=== PATIENT | male | born 1935 | race Caucasian/White ===

== ENCOUNTER 2018-07-21 07:31 | Day surgery (SDC) | payer MEDICARE, OTHER ==
[2018-07-21] MEDS ORDERED: Xylocaine 1% Vial 30 ML PF IJ ONE ×2 (07:32)
[2018-07-21] MEDS ORDERED: DIPRIVAN 200 MG/20 ML IV ONE (07:32)
[2018-07-21] MEDS ORDERED: Sodium Chloride 0.9(Preservative Free) 10 ML IJ ONE (07:32)
[2018-07-21] MEDS ORDERED: Ketamine HCl 50 MG/ML IJ ONE (07:32)
[2018-07-21] MEDS ORDERED: Depo-Medrol 40 MG/ML IM ONE (07:32)
--- NOTE | 2018-07-21 12:07 | XRAY ---
33 seconds of fluoroscopy was used in surgery for left L4-L5 and L5-S1 transforaminal VANESSA.
--- NOTE | 2018-07-21 12:17 | XRAY ---
Indication: Left L4-S1 transforaminal VANESSA. Intraoperative fluoroscopy was provided for 33 seconds. 2 digital spot images submitted for interpretation demonstrates posterior needle tips projecting over the expected course of the left L4 and L5 nerve roots. Small amount of contrast injected for needle tip placement. Correlate with intraoperative findings/report. Incidental spinal hardware posterior to L3-L5.
[2018-07-21] MEDS ORDERED: Lactated Ringers 1,000 ML IV ONE (14:52)
== END 2018-07-21 10:57 | disposition home or self-care (01) ==
LOC: SDC-PAIN 07:31
PROVIDERS: ATTEND Psychiatry & Neurology Pain Medicine
DX: M54.16 Radiculopathy, lumbar region (principal); E11.9 Type 2 diabetes mellitus without complications; I10 Essential (primary) hypertension; N40.0 Benign prostatic hyperplasia without lower urinary tract symptoms; N18.2 Chronic kidney disease, stage 2 (mild); M17.0 Bilateral primary osteoarthritis of knee; Z79.899 Other long term (current) drug therapy
CPT/HCPCS: 64483; 64484; 72020; 77003; 82962; 99100; J1030; J2001; J2704; Q9966

== ENCOUNTER 2018-08-11 09:20 | Day surgery (SDC) | payer MEDICARE, OTHER ==
[2018-08-11] MEDS ORDERED: Xylocaine 1% Vial 30 ML PF IJ ONE (09:21)
[2018-08-11] MEDS ORDERED: Sodium Chloride 0.9(Preservative Free) 10 ML IJ ONE (09:21)
[2018-08-11] MEDS ORDERED: Depo-Medrol 40 MG/ML IM ONE (09:21)
--- NOTE | 2018-08-11 16:27 | XRAY ---
44 seconds fluoroscopy time in surgery for left L4-S1 VANESSA.
--- NOTE | 2018-08-12 04:45 | XRAY ---
Indication: Left L4-S1 VANESSA. Intraoperative fluoroscopy was provided for 44 seconds. 4 digital spot images are submitted for interpretation. Posterior needle tips are projected over the anticipated course of the left L4 and L5 nerve roots. A small amount of contrast has been injected for needle tip placement. Correlate with intraoperative findings/report. Orthopedic hardware overlies L4-L5. Correlate with prior surgical history.
== END 2018-08-11 11:10 | disposition home or self-care (01) ==
LOC: SDC-PAIN 09:20
PROVIDERS: ATTEND Psychiatry & Neurology Pain Medicine
DX: M54.16 Radiculopathy, lumbar region (principal); E11.9 Type 2 diabetes mellitus without complications; I10 Essential (primary) hypertension; N40.0 Benign prostatic hyperplasia without lower urinary tract symptoms; N18.2 Chronic kidney disease, stage 2 (mild)
CPT/HCPCS: 64483; 64484; 72020; 77003; 82962; J1030; J2001; Q9966

== ENCOUNTER 2018-08-25 10:59 | Observation (INO) | payer MEDICARE, OTHER ==
--- NOTE | 2018-08-25 11:28 | ERPHSYRPT ---
- History of Present Illness Source: patient Exam Limitations: no limitations Patient Subjective Stated Complaint: pain to back, states he is unable to use his left leg Triage Nursing Assessment: Patient arrive by car to ER door, patient assisted to bed from car by 2 ER nurses. Mark states he is unable to move his left leg and is having back pain Timing/Duration: other (pain for one month left proximal thigh) Severity: moderate Modifying Factors: Improves With: other (Standing and movement left thigh) Associated Symptoms: No nausea, No vomiting, No abdominal pain, No shortness of breath, No heartburn, No diaphoresis, No cough, No chills, No chest pain, No fever, No headaches, No loss of appetite, No malaise, No rash, No syncope, No seizure, No weakness Hx Tetanus, Diphtheria Vaccination/Date Given: No Hx Influenza Vaccination/Date Given: No Hx Pneumococcal Vaccination/Date Given: No Immunizations Up to Date: Yes <TANYA PINEDA - Last Filed: 08/25/18 11:23> <MUNIR MARTIN - Last Filed: 08/25/18 17:58> - History of Present Illness Time Seen by Provider: 08/25/18 11:23 Physician History: 82-year-old white male arrives with complaint of pain in his left leg (thighs symptoms going on for a month he states he's been seeing a pain programmer numerical control in his [place] he's been having increasing pain in the left anterior leg he apparently had a CT today. He is complaining of pain in the leg worse with walking he denies any chest pain any shortness of breath any other complaints. Patient does state that he was seen at [facility] in the past secondary to some blood in his urine. Patient currently only complaint is pain in his left proximal thigh. Patient had a CT of his left thigh this morning at around midnight which is remarkable for a proximal left femur lytic lesion 3.8 x 3.2x7.6 cm he states that he has pain with any walking he can't stand the pain anymore when he goes to walk. Past medical history includes diabetes, high blood pressure apparently has had some blood in his urine in the past he states he's had some kidney problems Past surgical history includes appendectomy cholecystectomy and bilateral knee replacement. Social history patient denies tobacco alcohol or illicit drug use (TANYA PINEDA) Allergies/Adverse Reactions: nisoldipine [From [facility]ular] Allergy (Verified 08/25/18 11:21) Penicillins Allergy (Verified 08/25/18 11:21) Home Medications: No Reportable Medications [No Reported Medications] 08/25/18 [History] - Review of Systems Constitutional: No Fever, No Chills Eyes: No Symptoms Ears, Nose, & Throat: No Symptoms Respiratory: No Cough, No Dyspnea Cardiac: No Chest Pain, No Edema, No Syncope Abdominal/Gastrointestinal: No Abdominal Pain, No Nausea, No Vomiting, No Diarrhea Genitourinary Symptoms: No Dysuria Musculoskeletal: Other (left thigh pain) Skin: No Rash Neurological: No Dizziness, No Focal Weakness, No Sensory Changes Psychological: No Symptoms Endocrine: No Symptoms All Other Systems: Reviewed and Negative <TANYA PINEDA - Last Filed: 08/25/18 11:23> - Past Medical History Pertinent Past Medical History: No Neurological History: No Pertinent History ENT History: No Pertinent History Cardiac History: No Pertinent History Respiratory History: Other Endocrine Medical History: No Pertinent History Musculoskeletal History: Arthritis, Other GI Medical History: No Pertinent History History: Other Psycho-Social History: No Pertinent History, Anxiety Male Reproductive Disorders: No Pertinent History - Past Surgical History Past Surgical History: Yes Neuro Surgical History: No Pertinent History Cardiac: No Pertinent History Respiratory: No Pertinent History Gastrointestinal: No Pertinent History Genitourinary: No Pertinent History, Other Musculoskeletal: Joint Replacement Male Surgical History: No Pertinent History Other Surgical History: Two knee replacement 3 and 5 years ago - Social History Smoking Status: Never smoker Exposure to second hand smoke: No Drug Use: none Patient Lives Alone: No <TANYA PINEDA - Last Filed: 08/25/18 11:23> - Physical Exam General Appearance: mild distress, alert Eye Exam: PERRL/EOMI, eyes nml inspection Ears, Nose, Throat Exam: normal ENT inspection, TMs normal, pharynx normal, moist mucous membranes Neck Exam: normal inspection, non-tender, supple, full range of motion Respiratory Exam: normal breath sounds, lungs clear, No respiratory distress Cardiovascular Exam: regular rate/rhythm, normal heart sounds, normal peripheral pulses, capillary refill <2 sec Gastrointestinal/Abdomen Exam: soft, normal bowel sounds, No tenderness, No mass Back Exam: normal inspection, normal range of motion, No CVA tenderness, No vertebral tenderness Extremity Exam: other (left thigh with approximately 17 by Lamine by 6 cm soft tissue prominence anteriorly tender distal to this) Neurologic Exam: alert, oriented x 3, cooperative, 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 nml as tested, normal mood/affect, nml cerebellar function, nml station & gait, sensation nml, No motor deficits Skin Exam: normal color, warm, dry, No rash SpO2 Interpretation: normal (99%) SpO2: 99 <TANYA PINEDA - Last Filed: 08/25/18 11:23> - Nursing Vital Signs Nursing Vital Signs: Initial Vital Signs Temperature 98.2 F 08/25/18 11:01 Pulse Rate 41 L 08/25/18 11:01 Respiratory Rate 25 H 08/25/18 11:01 Blood Pressure 176/96 08/25/18 11:01 O2 Sat by Pulse Oximetry 99 08/25/18 11:01 Pain Scale Pain Intensity [Left Back] 8 Pain Intensity 10 - Course Nursing assessment & vital signs reviewed: Yes <TANYA PINEDA - Last Filed: 08/25/18 11:23> Ordered Tests: Active Orders 24 hr Category Date Time Status CBC W DIFF Stat Lab 08/25/18 12:37 Completed CMP Stat Lab 08/25/18 12:37 Completed Manual Differential NC Stat Lab 08/25/18 12:37 Completed Transfer Order Routine Transfer 08/25/18 Ordered Medication Summary Generic Name Dose Route Start Last Admin Trade Name Andree PRN Reason Stop Dose Admin Morphine Sulfate 2 mg 08/25/18 13:41 08/25/18 13:52 Morphine Sulfate 2 Mg Inj IV 08/25/18 13:42 2 mg STAT ONE Administration Discontinued Medications Generic Name Dose Route Start Last Admin Trade Name Andree PRN Reason Stop Dose Admin Hydromorphone HCl 0.5 mg 08/25/18 16:32 08/25/18 16:41 Hydromorphone 1 Mg/Ml Ampule IV 08/25/18 16:33 0.5 mg STAT ONE Administration Hydromorphone HCl Confirm 08/25/18 16:34 Hydromorphone 1 Mg/Ml Ampule Administered 08/25/18 16:35 Dose 1 mg .ROUTE .STK-MED ONE Lorazepam 1 mg 08/25/18 16:45 08/25/18 16:54 Ativan 2 Mg/1 Ml Vial IV 08/25/18 16:46 1 mg STAT ONE Administration Lorazepam Confirm 08/25/18 16:51 Ativan 2 Mg/1 Ml Vial Administered 08/25/18 16:52 Dose 2 mg .ROUTE .STK-MED ONE Ondansetron HCl 4 mg 08/25/18 16:33 08/25/18 16:41 Zofran 4 Mg/2 Ml Vial IV 08/25/18 16:34 4 mg STAT ONE Administration Ondansetron HCl Confirm 08/25/18 16:33 Zofran 4 Mg/2 Ml Vial Administered 08/25/18 16:34 Dose 4 mg .ROUTE .STK-MED ONE Lab/Rad Data: Laboratory Result Diagrams 08/25/18 12:37 08/25/18 12:37 Laboratory Results 08/25/18 08/25/18 Range/Units 12:37 12:37 WBC 11.5 H (4.0-10.5) K/mm3 RBC 5.09 (4.1-5.6) M/mm3 Hgb 13.6 (12.5-18.0) gm/dl Hct 40.8 L (42-50) % MCV 80.2 (78-100) fl MCH 26.7 (26-32) pg MCHC 33.3 (32-36) g/dl RDW 15.8 H (11.5-14.0) % Plt Count 238 (150-450) K/mm3 MPV 9.6 H (6-9.5) fl Segmented Neutrophils 82 H (36.-66.) % Lymphocytes (Manual) 17 L (24-44) % Monocytes (Manual) 1 (0.0-12.0) % Toxic Granulation 1+ Platelet Estimate NORMAL (NORMAL) RBC Morphology NORMAL Sodium 137 (137-145) mmol/L Potassium 4.2 (3.5-5.1) mmol/L Chloride 103 (98-107) mmol/L Carbon Dioxide 20 L (22-30) mmol/L Anion Gap 17.9 H (5-15) MEQ/L BUN 31 H (9-20) mg/dL Creatinine 1.27 H (0.66-1.25) mg/dL Estimated GFR 57.4 ML/MIN Glucose 128 H (74-106) mg/dL Calcium 9.9 (8.4-10.2) mg/dL Total Bilirubin 0.90 (0.2-1.3) mg/dL AST 50 (17-59) U/L ALT 29 (0-50) U/L Alkaline Phosphatase 69 (38-126) U/L Serum Total Protein 7.3 (6.3-8.2) g/dL Albumin 3.9 (3.5-5.0) g/dL - Progress Progress: improved <TANYA PINEDA - Last Filed: 08/25/18 11:23> - Progress Discussed with : Tan Counseled pt/family regarding: lab results, diagnosis, rad results <MUNIR MARTIN - Last Filed: 08/25/18 17:58> - Progress Progress Note: 08/25/18 11:29 This is an 82-year-old white male with history of high blood pressure, CVA, kidney problems who has had blood in his urine in the past he is complaining of pain in his left anterior thigh symptoms for one month. Patient on exam has a proximal his 17 x 13x9 cm soft tissue prominence on the anterior thigh is tender with palpation distally the to this. Patient with a CT of the left lower extremity this morning impression proximal left femur leave it lesion approximately 3.8 x 3.2x7.6 cm with bony cortical thinning and cortical break through anteriorly worrisome for primary versus metastatic malignancy. No obvious soft tissue component There is also an incidental and large prostate gland, osteopenia, degenerative changes of both hips and scattered arteriosclerotic disease. I've contacted the orthopedist that [facility] he recommended the patient be sent to a [facility] facility with availability of a orthopedic oncologist. (TANYA PINEDA) 08/25/18 17:[address] oh, [place], orthopedic oncologist, evaluated pts ct scan left lower ext on the cloud. he accepts pt for transfer but there are no beds available for approx 24 hours. ok to admit at [facility], pain control and no weight bearing. they will contact medical floor when bed available at [id number] womack. i reviewed pt hx, condition, lab and ct scan results with her. she accepts observation placement (MUNIR MARTIN) <TANYA PINEDA - Last Filed: 08/25/18 11:23> - Departure Departure Disposition: Observation Critical Care Time: No <MUNIR MARTIN - Last Filed: 08/25/18 17:58> - Departure Clinical Impression: Lytic bone lesion of femur, Impending pathologic fracture Condition: Stable Referrals: MORENA LUGO MD [Primary Care Provider] -
[2018-08-25 12:40] LABS: Hematocrit 40.8 % (42-50); Hemoglobin 13.6 gm/dl (12.5-18.0); Mean Cell Volume 80.2 fl (78-100); Mean Corpuscular Hemoglobin 26.7 pg (26-32); Mean Corpuscular Hgb Concent. 33.3 g/dl (32-36); Red Blood Count 5.09 M/mm3 (4.1-5.6); Red Cell Distribution Width 15.8 % (11.5-14.0); White Blood Count 11.5 K/mm3 (4.0-10.5)
[2018-08-25 12:41] LABS: Mean Platelet Volume 9.6 fl (6-9.5); Platelet Count 238 K/mm3 (150-450)
[2018-08-25 12:53] LABS: ALBUMIN 3.9 g/dL (3.5-5.0); ANION GAP 17.9 MEQ/L (5-15); BILIRUBIN,TOTAL 0.9 mg/dL (0.2-1.3); Calcium 9.9 mg/dL (8.4-10.2); Creatinine 1 1.27 mg/dL (0.66-1.25); Potassium 4.2 mmol/L (3.5-5.1); Total Protein 7.3 g/dL (6.3-8.2)
[2018-08-25 13:30] LABS: Lymphocytes 17 % (24-44); Monocyte 1 % (0.0-12.0); Neutrophils 82 % (36.-66.); Platelet Estimate NORMAL (NORMAL); Total Cells Counted 100; Toxic Granulation 1+
[2018-08-25] MEDS ORDERED: MORPHINE SULFATE 2 MG INJ IV ONE (13:41)
[2018-08-25] MEDS ORDERED: MORPHINE SULFATE 2 MG INJ ONE (13:51)
[2018-08-25] MEDS ORDERED: Hydromorphone 1 mg/ml Ampule IV ONE (16:32)
[2018-08-25] MEDS ORDERED: Zofran 4 MG/2 ML VIAL ONE (16:33)
[2018-08-25] MEDS ORDERED: Zofran 4 MG/2 ML VIAL IV ONE (16:33)
[2018-08-25] MEDS ORDERED: Hydromorphone 1 mg/ml Ampule ONE (16:34)
[2018-08-25] MEDS ORDERED: Ativan 2 MG/1 ML VIAL IV ONE (16:45)
[2018-08-25] MEDS ORDERED: Ativan 2 MG/1 ML VIAL ONE (16:51)
[2018-08-25] MEDS ORDERED: TYLENOL 325 MG PO PRN (18:37)
[2018-08-25] MEDS ORDERED: Ativan 2 MG/1 ML VIAL IV PRN (18:37)
[2018-08-25] MEDS ORDERED: DILAUDID 2 MG INJECTION IV PRN (18:37)
[2018-08-25 20:46] VITALS: O2SAT 95
[2018-08-25 23:51] VITALS: BP 130/63; PULSE 51
== END 2018-08-25 23:55 | disposition short-term general hospital (02) ==
LOC: ED 10:59 → MED SURG 18:20
PROVIDERS: ADMIT Internal Medicine; ATTEND Internal Medicine
DX: M89.9 Disorder of bone, unspecified (principal); N40.0 Benign prostatic hyperplasia without lower urinary tract symptoms; Z79.899 Other long term (current) drug therapy; Z86.73 Personal history of transient ischemic attack (TIA), and cerebral infarction without residual deficits
CPT/HCPCS: 36000; 36415; 80053; 85025; 96374; 96375; 99285; G0378; J1170; J2060; J2270; J2405